=== PATIENT | male | born 1990 | race Two or more races ===

== ENCOUNTER 2019-10-05 19:26 | Emergency (ER) | payer OTHER ==
[~2019-10-05] VITALS: Ht 177.8 cm; Wt 104.3 kg
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
--- NOTE | 2019-10-06 00:24 | NUR ---
Patient is resting comfortably in bed with eyes closed. Easily aroused. VSS
--- NOTE | 2019-10-06 05:30 | NUR ---
PT IN BED SLEEPING. NAD NOTED.
--- NOTE | 2019-10-06 05:36 | NUR ---
PT IN BED AAOX4. NO RESP DISTRESS. PT VERBALIZES HE FEELS BETTER
[2019-10-06 06:32] VITALS: BP 136/98
--- NOTE | 2019-10-06 06:33 | NUR ---
Patient discharged to home in stable condition. Written and verbal after care instructions given. Patient verbalizes understanding of instruction. Pt ambulatory with a use of crutches
== END 2019-10-06 06:36 | disposition home or self-care (01) ==
LOC: ER 19:28 → EDBD 19:28 → ER 10-06 06:36
DX: S82.491A Other fracture of shaft of right fibula, initial encounter for closed fracture (principal); S93.431A Sprain of tibiofibular ligament of right ankle, initial encounter; S00.531A Contusion of lip, initial encounter; F10.129 Alcohol abuse with intoxication, unspecified; Z90.89 Acquired absence of other organs; Y04.0XXA Assault by unarmed brawl or fight, initial encounter; Y93.89 Activity, other specified; Y92.89 Other specified places as the place of occurrence of the external cause; Y99.8 Other external cause status; Y90.9 Presence of alcohol in blood, level not specified
CPT/HCPCS: 70450-TC; 73600-TC; 82962-TC